=== PATIENT | male | born 1980 | race Two or more races ===

== ENCOUNTER 2025-05-19 17:55 | Emergency (ER) | payer OTHER ==
[~2025-05-19] VITALS: Ht 172.7 cm; Wt 81.4 kg
[2025-05-19 18:27] VITALS: TEMP 98
[2025-05-19 20:31] LABS: APPEARANCE,URINE CLEAR (CLEAR); GLUCOSE, URINE (UA) NEGATIVE (NEGATIVE); LEUKOCYTE ESTERASE ,URINE NEGATIVE (NEGATIVE); NITRATE,URINE NEGATIVE (NEGATIVE); OCCULT BLOOD,URINE NEGATIVE (NEGATIVE); SPECIFIC GRAVITIY, URINE 1.012 (1.003-1.030)
[2025-05-19 20:35] VITALS: BP 128/88; PULSE 84; RESP 16; O2SAT 98
== END 2025-05-19 23:09 ==
LOC: EMS 17:55
DX: I86.1 Scrotal varices (principal); N43.2 Other hydrocele
CPT/HCPCS: 76870; 81003; 99284